=== PATIENT | male | born 1965 | race Caucasian/White ===

== ENCOUNTER → 2016-11-03 | Outpatient (CLI) | payer OTHER ==
--- NOTE | 2016-11-03 13:16 | XR ---
EXAMINATION TYPE: XR spine complete AP and Lat DATE OF EXAM: 11/03/2016 1:07 PM COMPARISON: NONE HISTORY: Chronic pain TECHNIQUE: AP lateral open mouth odontoid views of the cervical spine. AP view of the thoracic spine. AP lateral views of the lumbar spine. Sacral base and transthoracic swimmer's view were obtained. La teral thoracic spine is obtained. FINDINGS: Cervical spine: Prevertebral space at cervical spine is normal. Disc height through the cervical spin e are normal. Posterior spinal lamellar line is intact. Tiny calcification may be within the right ca rotid system. Odontoid view is limited with overlying maxilla. Thoracic spine: There are 12 thoracic type vertebral bodies. Pedicles are intact. Slight scoliosis wi th a convexity to the left is present. Disc heights are preserved. Vertebral body heights are preserv ed. Lumbar spine: There 5 lumbar-type vertebral bodies. Pedicles are intact. Disc heights are preserved. Vertebral body heights are preserved. Scoliosis present with convexity to the right. IMPRESSION: 1. Mild S scoliosis through the thoracic and lumbar spine. 2. No acute abnormality within the cervical thoracic or lumbar spine
== END | disposition home or self-care (01) ==
LOC: RADXRMAIN 12:33
PROVIDERS: ATTEND Pediatrics
DX: M41.84 Other forms of scoliosis, thoracic region (principal); M41.86 Other forms of scoliosis, lumbar region
CPT/HCPCS: 72082

== ENCOUNTER → 2017-08-28 | Outpatient (CLI) | payer OTHER ==
--- NOTE | 2017-08-28 08:48 | CT ---
EXAMINATION TYPE: CT image guided sinus DATE OF EXAM: 08/28/2017 COMPARISON: NONE HISTORY: Chronic Pansinusitis per order. Sinus problems with facial pain for 4 years, history of prio r sinus surgery per patient. CT DLP: 651 mGycm. Automated Exposure Control for Dose Reduction was Utilized. TECHNIQUE: CT scan of the sinuses is performed without contrast, axial images are obtained, coronal r eformatted images are also reviewed. FINDINGS: Exam is performed for surgical planning and not for diagnostic purposes. The frontal, ethmo id, sphenoid, and maxillary sinuses are all well aerated without suspicious opacification or air-flui d levels. There is 1.4 cm small mucous retention cyst or polyp in inferior right maxillary sinus on a xial image 5. There is mild to minimal mucosal thickening involving left posterior ethmoid sinus ante rior wall axial image 38. Nasal septum is slightly deviated to right of midline. Mastoid air cells show no suspicious opacification. Visualized globes are intact. Visualized brain pa renchyma is unremarkable. IMPRESSION: As above.
== END | disposition home or self-care (01) ==
LOC: RADCTMAIN 08:09
PROVIDERS: ATTEND Otolaryngology
DX: J34.2 Deviated nasal septum (principal); J34.89 Other specified disorders of nose and nasal sinuses; J32.4 Chronic pansinusitis
CPT/HCPCS: 70486

== ENCOUNTER 2017-11-03 08:08 | Day surgery (SDC) | payer OTHER ==
[2017-11-01 11:25] VITALS: BMI 22.8
[~2017-11-03 08:08] MED LIST: LACTATED RINGERS 1,000 ML IV SCH
[2017-11-03 08:30] VITALS: TEMP 98.1
[2017-11-03] MEDS ORDERED: PROPOFOL 10 MG/ML 20 ML VIAL IV ONE (09:01)
--- NOTE | 2017-11-03 09:23 | P.PCN ---
Date of Procedure: 11/03/17 Procedure(s) Performed: BRIEF HISTORY: Patient is a 52-year-old pleasant white male, scheduled for an elective colonoscopy as a part of screening for colorectal neoplasia. PROCEDURE PERFORMED: Colonoscopy. PREOPERATIVE DIAGNOSIS: Screening for colon cancer. IV sedation per Anesthesia. PROCEDURE: After informed consent was obtained, the patient, was brought into the endoscopy unit. IV sedation was administered by Anesthesia under continuous monitoring. Digital rectal examination was normal. Initially the Olympus CF- 160 flexible video colonoscope was then inserted in the rectum, gradually advanced into the cecum without any difficulty. Careful examination was performed as the scope was gradually being withdrawn. Ileocecal valve and the appendiceal orifice were visualized and appeared normal. Prep was excellent. Mucosa of the cecum, ascending colon, transverse colon, descending colon, sigmoid colon, and rectum appeared normal. Scattered sigmoid diverticulosis seen. Retroflexion was performed in the rectum and no lesions were seen. The patient tolerated the procedure well. IMPRESSION: Normal-appearing colon from rectum to cecum with no evidence of colorectal neoplasia. Scattered sigmoid diverticulosis. RECOMMENDATIONS: Findings of this examination were discussed with the patient as well as his family. He was advised to have a repeat screening colonoscopy in 10 years.
[2017-11-03 09:32] VITALS: RESP 18
[2017-11-03 09:48] VITALS: BP 122/43; PULSE 66
== END 2017-11-03 10:04 | disposition home or self-care (01) ==
LOC: ORWHC2ENDO 08:08
PROVIDERS: ATTEND Internal Medicine Gastroenterology
DX: Z12.11 Encounter for screening for malignant neoplasm of colon (principal); K57.30 Diverticulosis of large intestine without perforation or abscess without bleeding; Z87.891 Personal history of nicotine dependence; M79.7 Fibromyalgia; Z79.891 Long term (current) use of opiate analgesic; Z79.899 Other long term (current) drug therapy; Z88.8 Allergy status to other drugs, medicaments and biological substances
CPT/HCPCS: J2704; G0121

== ENCOUNTER 2018-11-23 20:29 | Emergency (ER) | payer OTHER ==
[2018-11-23 20:55] VITALS: TEMP 98.5
[2018-11-23] MEDS ORDERED: HYDROmorphone 0.5 MG/0.5 ML SYRINGE IVP STA (21:24)
[2018-11-23] MEDS ORDERED: ONDANSETRON 4 MG/2 ML VIAL IVP STA (21:24)
[2018-11-23] MEDS ORDERED: KETOROLAC 30 MG/ML 1 ML VIAL IVP STA (21:24)
[2018-11-23] MEDS ORDERED: SODIUM CHLORIDE 0.9% 1,000 ML IV STA (21:24)
[2018-11-23 21:58] LABS: Basophils # (A) 0.1 k/uL (0-0.2); Basophils % (A) 0 %; Eosinophils # (A) 0.2 k/uL (0-0.7); Eosinophils % (A) 1 %; HCT 45.8 % (39.0-53.0); Lymphocytes # (A) 1.6 k/uL (1.0-4.8); Lymphocytes % (A) 10 %; MCH 30.5 pg (25.0-35.0); MCHC 32.7 g/dL (31.0-37.0); MCV 93.2 fL (80.0-100.0); Mean Platelet Volume 6.7; Monocytes # (A) 0.8 k/uL (0-1.0); Monocytes % (A) 5 %; Neutrophils # (A) 13.4 k/uL (1.3-7.7); Neutrophils % (A) 83 %; Platelet Count 306 k/uL (150-450); RBC 4.91 m/uL (4.30-5.90); RDW 13.5 % (11.5-15.5); WBC 16.3 k/uL (3.8-10.6)
[2018-11-23 22:01] LABS: Appearance,Urine Clear (Clear); Bilirubin,Urine Negative (Negative); Blood,Urine Negative (Negative); Color,Urine Yellow; Glucose,Urine (UA) Negative (Negative); Ketones,Urine Trace (Negative); Leukocyte Esterase,Urine Negative (Negative); Nitrite,Urine Negative (Negative); PH, Urine 5.5 (5.0-8.0); Protein,Urine Trace (Negative); Specific Gravity,Urine 1.032 (1.001-1.035); Urobilinogen,Urine <2.0 mg/dL (<2.0)
[2018-11-23 22:11] LABS: Albumin 4.7 g/dL (3.5-5.0); Calcium 10.1 mg/dL (8.4-10.2); Potassium 4.2 mmol/L (3.5-5.1); Total Bilirubin 0.6 mg/dL (0.2-1.3); Total Protein 7.6 g/dL (6.3-8.2)
--- NOTE | 2018-11-23 23:01 | CT ---
EXAM: CT Abdomen and Pelvis With Intravenous Contrast CLINICAL HISTORY: ITS.REASON CT Reason: Pain TECHNIQUE: Axial computed tomography images of the abdomen and pelvis with intravenous contrast. CTDI is 14.77 mGy and DLP is 631.9 mGy-cm. This CT exam was performed using one or more of the following dose reduction techniques: automated exposure control, adjustment of the mA and/or kV according to patient size, and/or use of iterative reconstruction technique. COMPARISON: Abdominal radiographs on 11/23/2018 FINDINGS: Liver: Normal. No focal lesion. Spleen: Small splenule. No focal lesion. Gallbladder: Underdistended gallbladder. No stones or biliary dilatation. Pancreas: Normal. No acute inflammation. No mass. Adrenal glands: Normal. No mass. Kidneys: 3 mm stone at the left UVJ. Mild left hydroureteronephrosis. Mild left perinephric fat stranding. Additional small stones in the left kidney. Punctate nonobstructing right renal stones. No hydronephrosis or ureteral stone on the right. Bilateral renal cysts. Bowel: Normal appendix. Mild diverticulosis without evidence of diverticulitis. No bowel obstruction or inflammation. Urinary bladder: Mild prominence of the bladder wall may be at least in part accentuated by underdistention. Reproductive organs: Normal. Muscles: No mass. Subcutaneous tissues: Small fat-containing umbilical hernia. Peritoneal space: Normal. No free fluid. Lymph nodes: Mildly prominent mesenteric lymph nodes are nonspecific but may be reactive. Vessels: Normal. No aneurysm or dissection. Bones: Degenerative grade 1 anterolisthesis of L4 on L5. No acute fracture or bony lesion. Lung bases: Normal. IMPRESSION: 3 mm stone at the left UVJ. Mild left hydroureteronephrosis. Mild left perinephric fat stranding. Additional small stones in the left kidney. Punctate nonobstructing right renal stones. No hydronephrosis or ureteral stone on the right.
--- NOTE | 2018-11-23 23:27 | ED ---
Abdominal Pain HPI - General Chief Complaint: Abdominal Pain Stated Complaint: Poss Kidney stones Time Seen by Provider: 11/23/18 21:16 Source: patient Mode of arrival: wheelchair Limitations: no limitations - History of Present Illness Initial Comments: 53-year-old male patient presents to the emergency department today for evaluation of left low back pain radiating into the left groin. Patient states this started approximately 2 hours ago. States that he did have difficulty with his urine stream earlier today. Denies any known hematuria. Denies fever or chills. States he has been nauseated but has not vomited. He denies any constipation, diarrhea, hematochezia, melena. Patient states he does have history of kidney stones and this does feel similar. Patient denies any recent rash, shortness breath, chest pain, numbness, tingling, dizziness, weakness, dysuria, urinary urgency, urinary frequency, headache, visual changes, or any other complaints. He denies any numbness, tingling, loss of bowel or bladder control, or saddle anesthesia. Denies any back injury. - Related Data Home Medications Medication Instructions Recorded Confirmed traMADol HCl [Ultram] 50 mg PO BID PRN 11/03/15 11/23/18 Onypqhi-Luvy-Tjby [id number] 1 tab PO Q12H PRN 11/01/17 11/23/18 [Excedrin] Multivitamins, Thera [Multivitamin 1 tab PO DAILY 11/01/17 11/23/18 (formulary)] Venlafaxine HCl [Effexor] 75 mg PO HS 11/01/17 11/23/18 Previous Rx's Medication Instructions Recorded Ondansetron [Zofran ODT] 4 mg PO Q8HR PRN #10 tab 11/23/18 Tamsulosin HCl [Flomax] 0.4 mg PO DAILY #7 cap 11/23/18 Allergies Allergy/AdvReac Type Severity Reaction Status Date / Time prochlorperazine Allergy Unknown Anxiety, Verified 11/23/18 21:22 [From Compazine] Skin Crawling Review of Systems ROS Statement: Those systems with pertinent positive or pertinent negative responses have been documented in the HPI. ROS Other: All systems not noted in ROS Statement are negative. Past Medical History Past Medical History: Fibromyalgia, Myocardial Infarction ([place]) Additional Past Medical History / Comment(s): STATES EKG SHOWED [place] (UNKNOWN DATE), BACK PAIN -SEES CHIROPRACTOR. Last Myocardial Infarction Date:: UNKNOWN History of Any Multi-Drug Resistant Organisms: None Reported Additional Past Surgical History / Comment(s): Testicular torsion corrections, fissure repair, sinus sx x2. Past Anesthesia/Blood Transfusion Reactions: Postoperative Nausea & Vomiting (PONV) Past Psychological History: Anxiety, Depression Smoking Status: Former smoker Past Alcohol Use History: None Reported Past Drug Use History: None Reported - Past Family History Mother Family Medical History: Cancer Additional Family Medical History / Comment(s): uterine cancer Brother(s) Family Medical History: Cancer Additional Family Medical History / Comment(s): testicular cancer General Exam Limitations: no limitations General appearance: alert, in no apparent distress, other (Physical well- developed, well-nourished adult male patient in no acute distress. Vital signs upon presentation are temperature 98.5F, pulse 90, respirations 20, blood pressure 135/76, pulse ox 97% on room air.) Eye exam: Present: normal appearance, PERRL, EOMI. Absent: scleral icterus, conjunctival injection, periorbital swelling ENT exam: Present: normal exam, normal oropharynx, mucous membranes moist Respiratory exam: Present: normal lung sounds bilaterally. Absent: respiratory distress, wheezes, rales, rhonchi, stridor Cardiovascular Exam: Present: regular rate, normal rhythm, normal heart sounds. Absent: systolic murmur, diastolic murmur, rubs, gallop, clicks GI/Abdominal exam: Present: soft, normal bowel sounds. Absent: distended, tenderness, guarding, rebound, rigid Back exam: Present: normal inspection. Absent: CVA tenderness (R), CVA tenderness (L) Neurological exam: Present: alert, oriented X3, CN II-XII intact Psychiatric exam: Present: normal affect, normal mood Skin exam: Present: warm, dry, intact, normal color. Absent: rash Course Vital Signs 11/23/18 11/23/18 20:51 23:30 Temperature 98.5 F Pulse Rate 90 65 Respiratory 20 18 Rate Blood Pressure 135/76 123/76 O2 Sat by Pulse 97 99 Oximetry Medical Decision Making - Medical Decision Making 53-year-old male patient presents to the emergency dependency for complaints of left low back pain radiating to the left lower quadrant abdomen down into the groin. Physical examination revealed a soft nontender abdomen. No CVA tenderness. Labs reviewed and did reveal elevated white blood cell count 16,000, urinalysis showed trace ketones. No evidence of blood or bacteria. CT abdomen and pelvis was obtained and did reveal evidence for a 3 mm obstructing stone at the left UVJ. Some mild left perinephric fat stranding. I did discuss findings and results with the patient. We will discharge the prescription for F rebecca and Zofran. He does have tramadol at home. He is instructed to follow-up with urologist for recheck as soon as possible. Return parameters were discussed in detail. He verbalizes understanding and agrees this plan. - Lab Data Result diagrams: 11/23/18 21:49 11/23/18 21:49 Lab Results 11/23/18 11/23/18 11/23/18 Range/Units 21:49 21:49 21:49 WBC 16.3 H (3.8-10.6) k/uL RBC 4.91 (4.30-5.90) m/uL Hgb 15.0 (13.0-17.5) gm/dL Hct 45.8 (39.0-53.0) % MCV 93.2 (80.0-100.0) fL MCH 30.5 (25.0-35.0) pg MCHC 32.7 (31.0-37.0) g/dL RDW 13.5 (11.5-15.5) % Plt Count 306 (150-450) k/uL Neutrophils % 83 % Lymphocytes % 10 % Monocytes % 5 % Eosinophils % 1 % Basophils % 0 % Neutrophils # 13.4 H (1.3-7.7) k/uL Lymphocytes # 1.6 (1.0-4.8) k/uL Monocytes # 0.8 (0-1.0) k/uL Eosinophils # 0.2 (0-0.7) k/uL Basophils # 0.1 (0-0.2) k/uL Sodium 140 (137-145) mmol/L Potassium 4.2 (3.5-5.1) mmol/L Chloride 108 H (98-107) mmol/L Carbon Dioxide 25 (22-30) mmol/L Anion Gap 7 mmol/L BUN 21 H (9-20) mg/dL Creatinine 1.26 H (0.66-1.25) mg/dL Est GFR (CKD-EPI)AfAm 74 (>60 ml/min/1.73 sqM) Est GFR (CKD-EPI)NonAf 64 (>60 ml/min/1.73 sqM) Glucose 105 H (74-99) mg/dL Calcium 10.1 (8.4-10.2) mg/dL Total Bilirubin 0.6 (0.2-1.3) mg/dL AST 27 (17-59) U/L ALT 24 (21-72) U/L Alkaline Phosphatase 53 (38-126) U/L Total Protein 7.6 (6.3-8.2) g/dL Albumin 4.7 (3.5-5.0) g/dL Amylase 63 (30-110) U/L Lipase 120 (23-300) U/L Urine Color Yellow Urine Appearance Clear (Clear) Urine pH 5.5 (5.0-8.0) Ur Specific [place] 1.032 (1.001-1.035) Urine Protein Trace H (Negative) Urine Glucose (UA) Negative (Negative) Urine Ketones Trace H (Negative) Urine Blood Negative (Negative) Urine Nitrite Negative (Negative) Urine Bilirubin Negative (Negative) Urine Urobilinogen <2.0 (<2.0) mg/dL Ur Leukocyte Esterase Negative (Negative) - Radiology Data Radiology results: report reviewed, image reviewed CT abdomen and pelvis was obtained. Report reviewed in its entirety. Impression by Dr. Snell shows 3 mm stone at the left UVJ. Mild left hydroureteronephrosis. Mild left perinephric fat stranding. Additional small stones in the left kidney. Punctate nonobstructing right renal stones. No hydronephrosis or ureteral stone on the right. KUB x-ray was obtained. Report was reviewed in its entirety. Impression by Dr. Snell shows nonobstructive bowel gas pattern. No free air. Large amount of stool may represent constipation Disposition Clinical Impression: Acute kidney injury, Kidney stone on left side Disposition: HOME SELF-CARE Condition: Good Instructions (If sedation given, give patient instructions): Acute Kidney Injury (DC), Kidney Stones (ED) Additional Instructions: Increase fluids. Take medications as directed. Follow-up with urologist for recheck as soon as possible. Have your kidney function rechecked. Return to the emergency department immediately for any new, worsening, or concerning symptoms. Prescriptions: Tamsulosin HCl [Flomax] 0.4 mg PO DAILY #7 cap Ondansetron [Zofran ODT] 4 mg PO Q8HR PRN #10 tab PRN Reason: Nausea Is patient prescribed a controlled substance at d/c from ED?: No Referrals: Daquan Joiner MD [Primary Care Provider] - 1-2 days Stefano Valle MD [STAFF PHYSICIAN] - 1-2 days Time of Disposition: 23:53
[2018-11-23 23:31] VITALS: BP 123/76; PULSE 65; RESP 18
--- NOTE | 2018-11-23 23:47 | XR ---
EXAM: XR Abdomen, 1 View CLINICAL HISTORY: ITS.REASON XR Reason: abdominal pain TECHNIQUE: Frontal supine view of the abdomen/pelvis. COMPARISON: None FINDINGS: Hardware: None. Abdomen: Nonobstructive bowel gas pattern. No free air. Large amount of stool may represent constipation. Bones: Mild right convex curvature of the lumbar spine. Mild degenerative changes of the hips. Soft tissues: Presumed phleboliths in the pelvis. Lower chest: Normal. IMPRESSION: Nonobstructive bowel gas pattern. No free air. Large amount of stool may represent constipation.
[2018-11-23] MEDS ORDERED: ONDANSETRON 4 MG ODT STARTER PACK 2 TAB BTL PO STA (23:50)
[2018-11-23] MEDS ORDERED: TAMSULOSIN 0.4 MG CAP.ER.24H PO STA (23:50)
[2018-11-23] MEDS ORDERED: ACET/COD 300 MG/30 MG STARTER PACK 6 TAB BTL PO STA (23:50)
[2018-11-23] MEDS ORDERED: IBUPROFEN 600 MG STARTER PACK 4 TAB BTL PO STA (23:51)
== END 2018-11-24 00:10 | disposition home or self-care (01) ==
LOC: EC 20:29
DX: N17.9 Acute kidney failure, unspecified (principal); N20.0 Calculus of kidney; F32.9 Major depressive disorder, single episode, unspecified; F41.9 Anxiety disorder, unspecified; Z87.891 Personal history of nicotine dependence; Z79.899 Other long term (current) drug therapy; Z88.8 Allergy status to other drugs, medicaments and biological substances
CPT/HCPCS: 36415; 80053; 82150; 83690; 85025; 81003; 74018; 74177; 99284; 96374; 96375 ×2; 96361 ×2; J2405; J1885; J1170; Q9967

== ENCOUNTER → 2019-07-01 | Outpatient (CLI) | payer BC ==
[2019-07-01 15:26] LABS: Appearance,Urine Clear (Clear); Bilirubin,Urine Negative (Negative); Blood,Urine Negative (Negative); Color,Urine Yellow; Glucose,Urine (UA) Negative (Negative); Ketones,Urine Negative (Negative); Leukocyte Esterase,Urine Negative (Negative); Nitrite,Urine Negative (Negative); Protein,Urine Negative (Negative); Urobilinogen,Urine <2.0 mg/dL (<2.0)
[2019-07-01 15:30] LABS: HGB 14.6 gm/dL (13.0-17.5); MCH 32.2 pg (25.0-35.0); MCHC 33.9 g/dL (31.0-37.0); Mean Platelet Volume 6.9; Platelet Count 291 k/uL (150-450); RBC 4.53 m/uL (4.30-5.90); RDW 12.4 % (11.5-15.5); WBC 7.7 k/uL (3.8-10.6)
[2019-07-01 19:17] LABS: Folate, Serum 19.4 ng/mL
[2019-07-01 20:22] LABS: ALT 34 U/L (10-49); AST 53 U/L (14-35); Alkaline Phosphatase 57 U/L (41-126); BUN/Creat Ratio 16.67 Ratio (12.00-20.00); C Reactive Protein <0.4 mg/dL (0.0-0.8); Calcium 9.7 mg/dL (8.7-10.3); Carbon Dioxide 27.6 mmol/L (21.6-31.8); Chloride 106 mmol/L (96-109); Creatine Kinase 616 U/L (35-257); Glucose 82 mg/dL (70-110); Non-African American GFR(CKD) 68.1 (60.0-200.0); Potassium 4.2 mmol/L (3.5-5.5); Sodium 138 mmol/L (135-145); Total Bilirubin 0.4 mg/dL (0.3-1.2); Total Protein 6.6 g/dL (6.2-8.2)
[2019-07-01 21:05] LABS: Erythrocyte Sedimentation Rate 2 mm/hr (0-15)
[2019-07-02 00:52] LABS: Hemoglobin A1C 5.1 % (4.0-6.0)
[2019-07-04 06:52] LABS: Vitamin E (Alpha Tocopherol) 1063 ug/dL (500-1800)
[2019-07-04 07:18] LABS: Vit B1(Thiamine) 123 ug/L (38-122)
== END | disposition home or self-care (01) ==
LOC: LABWHC1 14:36
PROVIDERS: ATTEND Nurse Practitioner Family
DX: G89.4 Chronic pain syndrome (principal); M79.7 Fibromyalgia; I49.9 Cardiac arrhythmia, unspecified; Z79.899 Other long term (current) drug therapy
CPT/HCPCS: 36415; 80053; 81003; 82306; 82550; 82607; 82746; 83036; 83519; 83735; 84207; 84425; 84446; 84590; 84591; 84597; 85027; 85652; 86140; 93005

== ENCOUNTER → 2019-07-19 | Outpatient (CLI) | payer BC ==
[~2019-07-19] MED LIST changes: +IODINE/POTASS IOD (LUGOLS) BOTTLE TOPICAL ONE; -LACTATED RINGERS 1,000 ML IV SCH
--- NOTE | 2019-07-20 15:12 | NM ---
EXAMINATION TYPE: NM DatScan Brain SPECT DATE OF EXAM: 07/19/2019 COMPARISON: NONE HISTORY: Tremor and memory loss TECHNIQUE: 10 drops of Lugol's solution was administered 1 hour prior to injection as a thyroid bloc todd agent. After the administration of 4.1 mCi I-123 Ioflupane DaTscan. Images obtained [address] injection. SPECT images of the brain were acquired with axial and coronal reconstructions. FINDINGS/IMPRESSION: The DaTSCAN demonstrates slight reduced uptake of tracer to the left striatum. This indicates the los s of the pre-synaptic dopaminergic terminals and is usually supportive of a clinical diagnosis of ei ther idiopathic PD or PS. However, given the marked asymmetry of the two sides, an MRI is recommended to ensure that this appearance is not due to a vascular etiology affecting the left putamen or the left ranulfo-striatal pathways.
== END | disposition home or self-care (01) ==
LOC: RADNMMAIN 10:51
PROVIDERS: ATTEND Psychiatry & Neurology Neurology
DX: R25.1 Tremor, unspecified (principal)
CPT/HCPCS: 78803; A9584

== ENCOUNTER 2021-02-23 21:28 | Inpatient (IN) | payer BC ==
[2021-02-23 21:59] VITALS: PULSE 71
--- NOTE | 2021-02-23 22:32 | ED ---
Psych HPI - General Chief Complaint: Psychiatric Symptoms Stated Complaint: Mental health Time Seen by Provider: 02/23/21 22:04 Source: patient Mode of arrival: wheelchair - History of Present Illness Initial Comments: This patient 55-year-old man with history of long-standing depression and also occasional suicidal ideation. He states that his mood is been much worse and he has been having frequent thoughts of suicide for the past 2 weeks since his medications were changed. MD Complaint: suicidal ideation, feels depressed Onset/Timin -: week(s) Associated Psychiatric Symptoms: depression, suicidal ideation History of same: Yes Quality: getting worse Improves With: none Worsens With: medication Context: significant life stressor Associated Symptoms: insomnia - Related Data Home Medications Medication Instructions Recorded Confirmed traMADol HCl [Ultram] 50 mg PO BID PRN 11/03/15 11/23/18 Kiwlvtn-Fudj-Rwax [id number] 1 tab PO Q12H PRN 11/01/17 11/23/18 [Excedrin] Multivitamins, Thera [Multivitamin 1 tab PO DAILY 11/01/17 11/23/18 (formulary)] Venlafaxine HCl [Effexor] 75 mg PO HS 11/01/17 11/23/18 Previous Rx's Medication Instructions Recorded Ondansetron [Zofran ODT] 4 mg PO Q8HR PRN #10 tab 11/23/18 Tamsulosin HCl [Flomax] 0.4 mg PO DAILY #7 cap 11/23/18 Allergies Allergy/AdvReac Type Severity Reaction Status Date / Time prochlorperazine Allergy Unknown Anxiety, Verified 02/23/21 21:59 [From Compazine] Skin Crawling Review of Systems ROS Statement: Those systems with pertinent positive or pertinent negative responses have been documented in the HPI. ROS Other: All systems not noted in ROS Statement are negative. Constitutional: Denies: fever, chills Respiratory: Denies: cough, dyspnea Cardiovascular: Denies: chest pain, palpitations Gastrointestinal: Denies: abdominal pain, nausea, vomiting Genitourinary: Denies: dysuria, hematuria Musculoskeletal: Denies: back pain Skin: Denies: lesions Neurological: Denies: headache, weakness, numbness Psychiatric: Reports: depression, suicidal thoughts. Denies: auditory hallucinations, visual hallucinations, homicidal thoughts Past Medical History Past Medical History: Fibromyalgia, Myocardial Infarction ([place]) Additional Past Medical History / Comment(s): STATES EKG SHOWED CT (UNKNOWN DATE), BACK PAIN -SEES CHIROPRACTOR. Last Myocardial Infarction Date:: UNKNOWN History of Any Multi-Drug Resistant Organisms: None Reported Additional Past Surgical History / Comment(s): Testicular torsion corrections, fissure repair, sinus sx x2. Past Anesthesia/Blood Transfusion Reactions: Postoperative Nausea & Vomiting (PONV) Past Psychological History: Anxiety, Depression Smoking Status: Vaper Past Alcohol Use History: None Reported Past Drug Use History: None Reported - Past Family History Mother Family Medical History: Cancer Additional Family Medical History / Comment(s): uterine cancer Brother(s) Family Medical History: Cancer Additional Family Medical History / Comment(s): testicular cancer General Exam Limitations: no limitations General appearance: alert, in no apparent distress Head exam: Present: atraumatic, normocephalic Eye exam: Present: normal appearance. Absent: scleral icterus, conjunctival injection ENT exam: Present: normal oropharynx Neck exam: Present: normal inspection Respiratory exam: Present: normal lung sounds bilaterally. Absent: respiratory distress, wheezes, rales, rhonchi, stridor Cardiovascular Exam: Present: regular rate, normal rhythm, normal heart sounds. Absent: systolic murmur, diastolic murmur, rubs, gallop GI/Abdominal exam: Present: soft. Absent: distended, tenderness, guarding, rebound, rigid, mass Extremities exam: Present: normal inspection, normal capillary refill Neurological exam: Present: alert Psychiatric exam: Present: depressed, flat affect, suicidal ideation. Absent: agitated, anxious, manic, homicidal ideation Skin exam: Present: warm, dry, intact, normal color. Absent: rash Course Vital Signs 02/23/21 21:56 Temperature 98.1 F Pulse Rate 71 Respiratory 20 Rate Blood Pressure 130/88 O2 Sat by Pulse 97 Oximetry Medical Decision Making - Lab Data Lab Results 02/23/21 Range/Units 23:23 Urine Color Yellow Urine Appearance Clear (Clear) Urine pH 5.5 (5.0-8.0) Ur Specific [place] 1.014 (1.001-1.035) Urine Protein Negative (Negative) Urine Glucose (UA) Negative (Negative) Urine Ketones Negative (Negative) Urine Blood Negative (Negative) Urine Nitrite Negative (Negative) Urine Bilirubin Negative (Negative) Urine Urobilinogen <2.0 (<2.0) mg/dL Ur Leukocyte Esterase Negative (Negative) Urine Opiates Screen Not Detected (NotDetected) Ur Oxycodone Screen Not Detected (NotDetected) Urine Methadone Screen Not Detected (NotDetected) Ur Propoxyphene Screen Not Detected (NotDetected) Ur Barbiturates Screen Detected H (NotDetected) U Tricyclic Antidepress Not Detected (NotDetected) Ur Phencyclidine Scrn Not Detected (NotDetected) Ur Amphetamines Screen Not Detected (NotDetected) U Methamphetamines Scrn Not Detected (NotDetected) U Benzodiazepines Scrn Not Detected (NotDetected) Urine Cocaine Screen Not Detected (NotDetected) U Marijuana (THC) Screen Not Detected (NotDetected) Disposition Clinical Impression: Mood disorder Disposition: ADMITTED IP TO THIS [facility] Condition: Fair Is patient prescribed a controlled substance at d/c from ED?: No Referrals: Daquan Joiner MD [Primary Care Provider] - 1-2 days
[2021-02-23 23:57] LABS: Appearance,Urine Clear (Clear); Bilirubin,Urine Negative (Negative); Blood,Urine Negative (Negative); Color,Urine Yellow; Glucose,Urine (UA) Negative (Negative); Ketones,Urine Negative (Negative); Leukocyte Esterase,Urine Negative (Negative); Nitrite,Urine Negative (Negative); PH, Urine 5.5 (5.0-8.0); Protein,Urine Negative (Negative); Specific Gravity,Urine 1.014 (1.001-1.035); Urobilinogen,Urine <2.0 mg/dL (<2.0)
[2021-02-24 00:10] LABS: Cocaine Screen,Urine Not Detected (NotDetected); Phencyclidine Screen,Urine Not Detected (NotDetected); Urn Cannabinoid Scrn Not Detected (NotDetected)
[2021-02-24 00:11] LABS: Amphetamine Screen,Urine Not Detected (NotDetected); Barbiturate Screen,Urine Detected (NotDetected); Benzodiazepines Screen,Urine Not Detected (NotDetected); Methadone Screen, Urine Not Detected (NotDetected); Opiate Screen,Urine Not Detected (NotDetected); Oxycodone Screen, Urine Not Detected (NotDetected); Tricyclic Antidepressant,Urine Not Detected (NotDetected)
[2021-02-24] MEDS ORDERED: LORazepam 1 MG TAB PO PRN (04:40)
[2021-02-24] MEDS ORDERED: LORazepam 2 MG/ML INJ IM PRN (04:40)
[2021-02-24] MEDS ORDERED: HALOPERIDOL LACTATE 5 MG/ML 1 ML VIAL IM PRN (04:41)
[2021-02-24] MEDS ORDERED: MAG HYDROX/AL HYDROX/SIMETH 30 ML CUP PO PRN (05:09)
[2021-02-24] MEDS ORDERED: ACETAMINOPHEN TAB 325 MG TAB PO PRN (05:09)
[2021-02-24] MEDS ORDERED: MAGNESIUM HYDROXIDE 2,400 MG/10 ML CUP PO PRN (05:09)
[2021-02-24 05:11] VITALS: BP 113/80; RESP 15; TEMP 98
[2021-02-24] MEDS: MELOXICAM 7.5 MG TAB PO SCH (08:15)
[2021-02-24] MEDS ORDERED: DULoxetine HCL 60 MG CAPSULE.DR PO STA (11:03)
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
--- NOTE | 2021-02-24 18:40 | P.CONS ---
History of Present Illness - Reason for Consult Consult date: 02/24/21 Medical management Requesting physician: Cassius Shepard - Chief Complaint Depression - History of Present Illness Consultation: This is a 55-year-old patient who follows with Dr. Joiner. Chronic stable medical conditions include fibromyalgia, chronic back pain. Sees chiropractor, mild Parkinson disease, restless leg syndrome. Patient has social issues going on at home including his having multiple sclerosis, and he or any money for his foster sons hospitalization. This is getting overwhelming for the patient. Unable to keep track of things. Feeling rather depressed. Also suicidal ideations and decided to check in. Did not have any specific plans to hurt himself. Appetite is fair. His sleeping fine. No change in bowel or urine habits. No fever no chills. 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 No smoking or alcohol. Does vape occasionally. Family history: Uterine cancer Physical examination: VITAL SIGNS: 98, 71, 15, 130/80, 99% room air GENERAL: BMI 26.4, sitting up, comfortable. EYES: Pupils equal. Conjunctiva normal. HEENT: External appearance of nose and ears normal, oral cavity grossly normal. NECK: JVD not raised; masses not palpable. HEART: First and second heart sounds are normal; no edema. LUNGS: Respiratory rate normal; clear to auscultation. ABDOMEN: Soft, nontender, liver spleen not palpable, no masses palpable. PSYCH: Alert and oriented x3; mood and affect normal. NEUROLOGICAL: Cranial nerves grossly intact; no facial asymmetry, power and sensation grossly intact. LYMPHATICS: No lymph nodes palpable in the axilla and neck INVESTIGATIONS, reviewed in the clinical context: UA: Negative Urine drug screen: Positive for barbiturates Assessment and plan: -Idiopathic Parkinson's disease. [I do not see any obvious features the same. Patient not in any medications for the same.:] Follow clinically -Restless leg syndrome Takes Effexor -BPH Flomax 0.4 mg daily -Fibromyalgia Ultram 50 mg twice a day when necessary -Depression and adjustment disorder Medications by psychiatry Care was discussed with the patient. Questions answered. Patient to follow with Dr. Joiner, upon discharge. Thank you Dr. Shepard Past Medical History Past Medical History: Fibromyalgia, Myocardial Infarction ([place]) Additional Past Medical History / Comment(s): STATES EKG SHOWED [place] (UNKNOWN DATE), BACK PAIN -SEES CHIROPRACTOR. Last Myocardial Infarction Date:: UNKNOWN History of Any Multi-Drug Resistant Organisms: None Reported Additional Past Surgical History / Comment(s): Testicular torsion corrections, fissure repair, sinus sx x2. Past Anesthesia/Blood Transfusion Reactions: Postoperative Nausea & Vomiting (PONV) Past Psychological History: Anxiety, Depression Smoking Status: Vaper Past Alcohol Use History: None Reported Additional Past Alcohol Use History / Comment(s): quit smoking 4 years ago. smoked on and off for 15 yrs. Past Drug Use History: None Reported - Past Family History Mother Family Medical History: Cancer Additional Family Medical History / Comment(s): uterine cancer Brother(s) Family Medical History: Cancer Additional Family Medical History / Comment(s): testicular cancer Medications and Allergies Home Medications Medication Instructions Recorded Confirmed Type traMADol HCl [Ultram] 50 mg PO BID PRN 11/03/15 02/24/21 History [id number] 1 tab PO Q12H PRN 11/01/17 02/24/21 History [Excedrin] Multivitamins, Thera [Multivitamin 1 tab PO DAILY 11/01/17 02/24/21 History (formulary)] Venlafaxine HCl [Effexor] 75 mg PO HS 11/01/17 02/24/21 History Ondansetron [Zofran ODT] 4 mg PO Q8HR PRN #10 tab 11/23/18 02/24/21 Rx Tamsulosin HCl [Flomax] 0.4 mg PO DAILY #7 cap 11/23/18 02/24/21 Rx Allergies Allergy/AdvReac Type Severity Reaction Status Date / Time prochlorperazine Allergy Unknown Anxiety, Verified 02/24/21 05:13 [From Compazine] Skin Crawling Physical Exam Vitals: Vital Signs Temp Pulse Pulse Resp BP BP Pulse Ox 02/24/21 04:30 98.0 F 71 15 113/80 99 02/23/21 21:56 98.1 F 71 20 130/88 97 Intake and Output 02/23/21 02/24/21 02/24/21 22:59 06:59 14:59 Other: Weight 88.451 kg 85.927 kg Results Labs: Abnormal Lab Results - Last 24 Hours (Table) 02/23/21 Range/Units 23:23 Ur Barbiturates Screen Detected H (NotDetected)
[2021-02-24] MEDS: traMADol 50 MG TAB PO PRN (20:37)
[2021-02-25] MEDS: MELOXICAM 7.5 MG TAB PO SCH (08:25)
[2021-02-25] MEDS: traMADol 50 MG TAB PO PRN (08:25)
[2021-02-25] MEDS ORDERED: DULoxetine HCL 60 MG CAPSULE.DR PO SCH (09:00)
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
[2021-02-25 12:28] LABS: Albumin 5.2 g/dL (3.5-5.0); Calcium 10.3 mg/dL (8.4-10.2); Potassium 4.3 mmol/L (3.5-5.1); Total Bilirubin 0.4 mg/dL (0.2-1.3); Total Protein 8.1 g/dL (6.3-8.2)
[2021-02-25 12:37] LABS: Basophils # (A) 0.1 k/uL (0-0.2); Basophils % (A) 1 %; Eosinophils # (A) 0.1 k/uL (0-0.7); Eosinophils % (A) 1 %; HCT 53.7 % (39.0-53.0); HGB 17.7 gm/dL (13.0-17.5); Lymphocytes # (A) 1.9 k/uL (1.0-4.8); Lymphocytes % (A) 26 %; MCH 32.6 pg (25.0-35.0); MCV 98.8 fL (80.0-100.0); Mean Platelet Volume 6.9; Monocytes # (A) 0.7 k/uL (0-1.0); Monocytes % (A) 9 %; Neutrophils # (A) 4.6 k/uL (1.3-7.7); Neutrophils % (A) 61 %; Platelet Count 320 k/uL (150-450); RBC 5.43 m/uL (4.30-5.90); RDW 13.9 % (11.5-15.5); WBC 7.5 k/uL (3.8-10.6)
[2021-02-25 22:26] LABS: Hemoglobin A1C 5.2 % (4.0-6.0)
[2021-03-01] MEDS ORDERED: ERGOCALCIFEROL 1,250 MCG (50,000 IU) CAPSULE PO SCH (09:00)
== END 2021-02-25 13:10 | disposition home or self-care (01) | DRG 882 ==
LOC: EC 21:28 → 3MHU 02-24 04:00
PROVIDERS: ADMIT Psychiatry & Neurology Psychiatry; ATTEND Psychiatry & Neurology Psychiatry
DX: F43.23 Adjustment disorder with mixed anxiety and depressed mood (principal); R45.851 Suicidal ideations; G20 Parkinson's disease; G25.81 Restless legs syndrome; G47.00 Insomnia, unspecified; G89.29 Other chronic pain; F41.9 Anxiety disorder, unspecified; I25.2 Old myocardial infarction; F17.290 Nicotine dependence, other tobacco product, uncomplicated; M54.9 Dorsalgia, unspecified; M79.7 Fibromyalgia; N40.0 Benign prostatic hyperplasia without lower urinary tract symptoms; Z79.899 Other long term (current) drug therapy; Z80.43 Family history of malignant neoplasm of testis; Z81.1 Family history of alcohol abuse and dependence; Z88.8 Allergy status to other drugs, medicaments and biological substances; Z98.890 Other specified postprocedural states; Z80.49 Family history of malignant neoplasm of other genital organs
CPT/HCPCS: 80053; 80306; 81003; 82075; 83036; 84443; 85025; 99285

== ENCOUNTER → 2021-06-25 | Outpatient (CLI) | payer BC ==
--- NOTE | 2021-06-25 16:30 | NM ---
EXAMINATION TYPE: NM DatScan Brain SPECT DATE OF EXAM: 06/25/2021 COMPARISON: Prior study July 19, 2019 HISTORY: Tremor unspecified. Like spasm. TECHNIQUE: 10 drops of Lugol's solution was administered 1 hour prior to injection as a thyroid bloc todd agent. After the administration of 4.35 mCi I-123 Ioflupane DaTscan. Images obtained 3.25 hour s post injection. SPECT images of the brain were acquired with axial and coronal reconstructions. FINDINGS: The DaTSCAN demonstrates normal uptake of tracer throughout the bilateral striata. Consequently there is no evidence of loss of the pre-synaptic dopaminergic terminals on this investigation. IMPRESSION: This normal appearance is against a diagnosis of idiopathic Parkinson?s disease (PD) or a Parkinsonia n syndrome (PS) and is seen in healthy individuals and also patients with essential tremor (ET), drug induced parkinsonism, and vascular pseudo-parkinsonism.
== END | disposition home or self-care (01) ==
LOC: RADNMMAIN 10:57
PROVIDERS: ATTEND Psychiatry & Neurology Neurology
DX: G25.0 Essential tremor (principal)
CPT/HCPCS: 78803; A9584

== ENCOUNTER → 2021-07-09 | Outpatient (CLI) | payer BC ==
[2021-07-09 18:02] LABS: C Reactive Protein <0.30 mg/dL (0.00-0.80); Rheumatoid Factor, Qnt <10 IU/mL (0-15)
[2021-07-09 19:19] LABS: Anti-DNA, DS unit <1.0 IU/mL; Anti-Smith Ab Interp NEGATIVE (NEGATIVE); Cyclic Citrull Pep IgG Unit <0.5 U/mL; Cyclic Citrullinated Pep IgG NEGATIVE (NEGATIVE); DNA Double-Stranded NEGATIVE (NEGATIVE); JO-1 IgG Antibody <0.2 AI; Scleroderma SC-70 Ab <0.2 AI
== END | disposition home or self-care (01) ==
LOC: LABWHC1 11:58
PROVIDERS: ATTEND Nurse Practitioner Family
DX: M25.50 Pain in unspecified joint (principal)
CPT/HCPCS: 36415; 83516; 86038; 86140; 86200; 86225; 86235; 86431

== ENCOUNTER → 2022-12-28 | Outpatient (CLI) | payer BC ==
--- NOTE | 2022-12-28 14:45 | US ---
EXAMINATION TYPE: US groin LT DATE OF EXAM: 12/28/2022 COMPARISON: NONE CLINICAL INDICATION: Male, 57 years old with history of K40.90 LEFT INGUINAL HERNIA R10.32 LEFT LOWER QUADRANT PAIN; Pt states left inguinal/groin pain FINDINGS: Left inguinal canal/groin imaged/ multiple valsalva maneuvers were obtained- no sonographic evidenc e of inguinal hernia at this time IMPRESSION: 1. Negative left inguinal ultrasound. No ultrasound evidence of inguinal hernia
== END | disposition home or self-care (01) ==
LOC: RADUSWWP 14:19
PROVIDERS: ATTEND Pediatrics
DX: K40.90 Unilateral inguinal hernia, without obstruction or gangrene, not specified as recurrent (principal); R10.32 Left lower quadrant pain

== ENCOUNTER 2024-05-21 07:28 | Day surgery (SDC) | payer BC ==
[2024-05-16 08:59] VITALS: BMI 22.4
[2024-05-21] MEDS: IV FLUID CONTINUATION 1,000 ML IV ONE ×3 (07:42→12:55)
[2024-05-21 08:04] LABS: Glucose,Whole Blood 97 mg/dL (70-110)
[2024-05-21] MEDS: LACTATED RINGERS 1,000 ML IV SCH (08:20)
[2024-05-21] MEDS: ACETAMINOPHEN TAB 500 MG TAB PO PRN (08:34)
[2024-05-21] MEDS: ONDANSETRON 4 MG/2 ML VIAL IVP ONE (08:34)
[2024-05-21] MEDS: DEXAMETHASONE SOD PHOSPHATE 4 MG/ML 1 ML VIAL IV ONE (08:34)
[2024-05-21] MEDS: SCOPOLAMINE 1 MG/72 HR PATCH TRANSDERM ONE (08:35)
[2024-05-21] MEDS: MIDAZOLAM 2 MG/2 ML VIAL IV PRN (08:51)
[2024-05-21] MEDS: fentaNYL (PF) 50 MCG/ML 2 ML AMP IVP STA (08:51)
[2024-05-21] MEDS: HEPARIN SODIUM,PORCINE 5,000 UNIT/ML 1 ML VIAL SQ PRN (09:06)
[2024-05-21] MEDS ORDERED: PROPOFOL 10 MG/ML 20 ML VIAL IV ONE (09:20)
[2024-05-21] MEDS ORDERED: HYDROmorphone (PF) 1 MG/ML ONE (09:20)
[2024-05-21] MEDS ORDERED: GLYCOPYRROLATE 0.2 MG/ML 2 ML VIAL ONE (09:20)
[2024-05-21] MEDS ORDERED: NEOSTIGMINE 1 MG/ML 10 ML VIAL ONE (09:20)
[2024-05-21] MEDS ORDERED: SODIUM CHLORIDE 0.9% (PF) 10 ML VIAL ONE (09:20)
[2024-05-21] MEDS ORDERED: PHENYLEPHRINE 10 MG/ML VIAL ONE (09:20)
[2024-05-21] MEDS ORDERED: ROPIVACAINE 5 MG/ML 30 ML VIAL ONE (09:20)
[2024-05-21] MEDS ORDERED: KETAMINE HCL IN 0.9 % NACL 50 MG/5 ML SYRINGE ONE (09:20)
[2024-05-21] MEDS ORDERED: LIDOCAINE 4% LTA KIT (4 ML) TOPICAL ONE (09:20)
[2024-05-21] MEDS ORDERED: ROCURONIUM 10 MG/ML (5 ML VIAL) IV ONE (09:20)
[2024-05-21] MEDS ORDERED: fentaNYL (PF) 50 MCG/ML 2 ML AMP ONE (09:20)
[2024-05-21] MEDS ORDERED: DEXAMETHASONE SOD PHOSPHATE 4 MG/ML 1 ML VIAL ONE (09:20)
[2024-05-21] MEDS ORDERED: MIDAZOLAM 2 MG/2 ML VIAL ONE (09:20)
[2024-05-21] MEDS ORDERED: SUCCINYLCHOLINE CHLORIDE 200 MG/10 ML VIAL IV ONE (09:20)
[2024-05-21] MEDS ORDERED: KETOROLAC 15 MG/ML 1 ML VIAL ONE (09:20)
[2024-05-21] MEDS ORDERED: LIDOCAINE 1% INJ 10MG/ML (20 ML MDV) ONE (09:20)
--- NOTE | 2024-05-21 09:21 | P.ANPRN ---
Procedure Note - Anesthesia - Nerve Block Performed Left Erector Spinae Single Time Out Performed: Yes Date of Procedure: 05/21/24 Location of Patient: PreOp Indication: Acute Post-Operative Pain, Dx/Pain Location (Left groin), Requested by Surgeon Specifically requested for management of pain by DrJessy: Nicanor Dominguez Sedation Type: Sedate with meaningful contact maintained Preparation: Sterile Prep Position: Prone Catheter: None Needle Types: Pajunk Needle Gauge: 21 (100 mm) Ultrasound used to visualize needle placement: Yes Ultrasound used to observe medication spread: Yes Injectate: 0.5% Ropivacaine (see comment for volume) (40 + 8mg of decadron + 20 cc saline) Blood Aspirated: No Pain Paresthesia on Injection Noted: No Resistance on Injection: Normal Image Stored and Saved: Yes Events: Uneventful and Well Tolerated
[2024-05-21] MEDS: LIDOCAINE 1%-EPI 1:100,000 20 ML VIAL SQ ONE (09:47)
[2024-05-21] MEDS: LACTATED RINGERS 1,000 ML IV ONE (10:11)
--- NOTE | 2024-05-21 10:28 | P.OP ---
Date of Procedure: 05/21/24 Preoperative Diagnosis: Left inguinal hernia Postoperative Diagnosis: Left inguinal hernia Procedure(s) Performed: Laparoscopic robotic cyst repair of left inguinal hernia Transversus abdominis plane block Anesthesia: STEPHANIE Surgeon: Nicanor Dominguez Estimated Blood Loss (ml): 5 Pathology: none sent Condition: stable Disposition: PACU Description of Procedure: The patient's placed on the operating table in the supine position. The patient received general anesthesia. The patient's abdomen was prepped and draped in usual sterile fashion. The skin was anesthetized 1% local Xylocaine at the incision sites. Using an 11 blade a skin incision was made at the umbilicus. The fascia was grasped with a Nain and then the peritoneal cavity was entered with the Veress needle. Position of the Veress needle was confirmed with a positive drop test. After adequate insufflation a 5 mm trocar was placed into the peritoneal cavity. The Laparoscope was placed the peritoneal cavity. And a robotic 8 mm trocar was placed in the right lateral position and then another 8 mm robotic trochars placed in the left lateral position. The original 5 mm trocar was exchanged for a 12 mm trocar. The patient was placed in reverse Trendelenburg and then the patient was docked to the robot. A four-quadrant transversus abdominis plane block was performed 1% local Xylocaine. Next the peritoneum over top of the hernia was incised and then using blunt and sharp dissection and electrocautery the hernia sac was dissected free from the floor of the inguinal canal. The hernia sac was completely reduced into the peritoneal cavity. And then using the Pro on awake counselor mesh the hernia was repaired. The peritoneum was then sutured with 20V lock suture. The patient was then undocked the robot. The needle was withdrawn from the peritoneal cavity. The umbilical trocar site was closed with 0 Ethibond suture. The skin was closed interrupted 3-0 Monocryl suture. Dermabond dressing was applied. Patient was sent to recovery in stable condition.
[2024-05-21 10:38] VITALS: TEMP 97
[2024-05-21] MEDS: HYDROmorphone 0.5 MG/0.5 ML SYRINGE IVP PRN (11:04)
[2024-05-21 14:16] VITALS: BP 119/67; PULSE 63; RESP 16
[2024-05-21] MEDS: TAMSULOSIN 0.4 MG CAP.ER.24H PO STA (14:16)
== END 2024-05-21 15:45 | disposition home or self-care (01) ==
LOC: OR 07:28
PROVIDERS: ATTEND Surgery
DX: K40.90 Unilateral inguinal hernia, without obstruction or gangrene, not specified as recurrent (principal); I25.2 Old myocardial infarction; F32.A Depression, unspecified; Z87.891 Personal history of nicotine dependence; Z88.9 Allergy status to unspecified drugs, medicaments and biological substances; Z79.899 Other long term (current) drug therapy
CPT/HCPCS: 49650; S2900; 64999